=== PATIENT | female | born 1960 | race Caucasian/White ===

== ENCOUNTER 2018-01-17 08:11 | Outpatient (CLI) | payer BC ==
[2018-01-17] MEDS ORDERED: Gadobenate Dimeglumine 529 MG/1 ML (20ML VIAL) ONE (11:33)
== END 2018-01-17 08:12 | disposition home or self-care (01) ==
LOC: BICMRI 08:11
PROVIDERS: ATTEND Orthopaedic Surgery Hand Surgery
DX: D18.00 Hemangioma unspecified site (principal)
CPT/HCPCS: A9579

== ENCOUNTER 2018-01-29 13:26 | Outpatient (CLI) | payer BC ==
[2018-01-29 14:37] LABS: Hemoglobin 14.7 g/dL (12.0-16.0); Mean Corpuscular Hemoglobin 29.9 pg (27.0-31.0); Mean Corpuscular Volume 88.1 fl (81.0-99.0); Mean Platelet Volume 6.3 fL (7.4-10.4); Platelet Count 337 thou/uL (130-400); RBC Distribution Width 12.4 % (11.5-14.5); Red Blood Cell (RBC) Count 4.92 mill/uL (4.20-5.40); White Blood Cell (WBC) Count 5.7 thou/uL (4.8-10.8)
[2018-01-29 14:47] LABS: INR-International Normal Ratio 0.9; Prothrombin Time 12.4 SEC (12.0-14.7)
--- NOTE | 2018-01-29 14:49 | RAD ---
TWO VIEWS CHEST: Comparison: None. History: Pre-operative radiograph. FINDINGS: Two views of the chest show normal sized cardiomediastinal silhouette. There is no evidence of consol idation, mass, or pleural effusion. Degenerative changes are seen in the spine. IMPRESSION: No evidence of acute cardiopulmonary disease. POS: [facility]
[2018-01-29 14:59] LABS: Anion Gap 12 mmol/L (10-20); BUN (Urea Nitrogen) 15 mg/dL (9.8-20.1); Calc. Creatinine Clearance 0 mL/min (70-130); Calcium 9.9 mg/dL (7.8-10.44); Carbon Dioxide 31 mmol/L (22-29); Chloride 103 mmol/L (98-107); Estimated GFR-MDRD 76; Glucose 104 mg/dL (70-105); Sodium 142 mmol/L (136-145)
--- NOTE | 2018-01-29 20:08 | EKG ---
Test Reason : Blood Pressure : / mmHG Vent. Rate : 088 BPM Atrial Rate : 088 BPM P-R Int : 154 ms QRS Dur : 084 ms QT Int : 364 ms P-R-T Axes : 044 042 042 degrees QTc Int : 440 ms Normal sinus rhythm Normal ECG No previous ECGs available Confirmed by PHILOMENA STALLWORTH, DR. Dodd ([id number]) on 01/29/2018 8:08:10 PM Referred By: MARIO ALBERTO Confirmed By:DR. Ju QUACH MD
== END 2018-01-29 13:27 | disposition home or self-care (01) ==
LOC: LABBT 13:26
PROVIDERS: ATTEND Orthopaedic Surgery Hand Surgery
DX: Z01.818 Encounter for other preprocedural examination (principal); D18.09 Hemangioma of other sites
CPT/HCPCS: 71046; 80048; 85027; 85610; 93005; 93010

== ENCOUNTER 2018-01-30 05:55 | Day surgery (SDC) | payer BC ==
[2018-01-29 13:46] VITALS: BMI 34.9
[2018-01-30] MEDS ORDERED: Fentanyl 250 MCG/5 ML VIAL ONE (06:27)
[2018-01-30] MEDS ORDERED: Midazolam HCl 2 mg/2 ml Vial ONE ×2 (06:27→07:24)
[2018-01-30] MEDS ORDERED: Bupivacaine PF 0.5% 30 ML VIAL ONE (06:37)
[2018-01-30] MEDS ORDERED: Sodium Chloride 0.9% 10 ML ONE (06:37)
[2018-01-30] MEDS ORDERED: Bacitracin Zinc Ointment 30 gm TUBE ONE (06:37)
[2018-01-30] MEDS ORDERED: CEFAZOLIN/Water 2 GM/20 ML SYRINGE ONE (07:43)
[2018-01-30] MEDS ORDERED: Ketorolac Tromethamine 30 MG/ML VIAL ONE (09:25)
[2018-01-30] MEDS ORDERED: Propofol 200 MG/20 ML VIAL ONE (14:55)
[2018-01-30] MEDS ORDERED: Ondansetron HCl/PF 4 MG/2 ML Vial ONE (14:55)
[2018-01-30] MEDS ORDERED: PHENYLEPHRINE-NS 100 MCG/ML 10 ML SYRINGE ONE (14:55)
[2018-01-30] MEDS ORDERED: Lidocaine 1% PF 5 ML VIAL ONE (14:55)
[2018-01-30] MEDS ORDERED: Dexamethasone 20 MG/5 ML VIAL ONE (14:55)
--- NOTE | 2018-01-30 15:24 | OP ---
DATE OF SURGERY: 01/30/2018 PREOPERATIVE DIAGNOSIS: Left ring finger tumor. 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 PROCEDURE PERFORMED: 1. Removal of nail. 2. Excision biopsy glomus tumor left ring finger nail bed area junction of the germinal and sterile matrix and the nail bed graft 5 mm x 2 mm. ESTIMATED BLOOD LOSS: 10 mL TOURNIQUET TIME: 43 minutes. ANESTHESIA: General LMA technique by [place] Anesthesia. DESCRIPTION OF PROCEDURE: After successful general LMA technique, the limb was prepped and draped. The patient had a time out before then we indicated the fact that the site and procedures matched the records. We exsanguinated the limb, and augment the anesthesia with a 10 mL 0.5% metacarpophalangeal level blo ck Marcaine, no epinephrine. We then lifted the nail from the nail bed gently and remove the nail. There was a defect at the junction of the terminal junction of the sterile and germinal matrix. Slig htly oblique of the ulna, but we made a midline incision 1 cm dissecting create a flap, in the finish part of flap where the tumor was seen. It was reddish, almost oblong in shape, and approximately 4. 5 mm x 2 mm. We excised this, along with the area of normal tissue around and by doing so left a def ect in the nail bed junction of the sterile and germinal matrix more sterile matrix of approximately 4 mm x 2 mm. We irrigated the area, sent the specimen fresh to pathology, waited 20 minutes until we had their decision before we proceeded and found that it was a glomus tumor after verbal communicati on from the pathologist and surgeon Dr. Silva intraoperatively. We then proceeded to harvest a split-thickness nail bed graft, secured it with 6-0 chromic to the def ect and closure made with longitudinal midline nail incision with 6-0 chromic. We then released the tourniquet, obtained hemostasis, repaired the 1 cm area of skin flap created with a 5-0 nylon interru pted simple pattern. Placed a bacitracin covered Adaptic under the nail eponychial fold, covered the wound with bacitracin and Adaptic. Small dressing finger tube gauze with looped around the wrist to hold it in place and the patient left the operating room with pink finger. No evidence of anestheti c or operative complication.
== END 2018-01-30 10:50 | disposition home or self-care (01) ==
LOC: SDC 05:55
PROVIDERS: ATTEND Orthopaedic Surgery Hand Surgery
PROC: 0HTQXZZ Resection of Finger Nail, External Approach (ICD-10-PCS; principal; 2018-01-30)
PROC: 0JBK0ZZ Excision of Left Hand Subcutaneous Tissue and Fascia, Open Approach (ICD-10-PCS; principal; 2018-01-30)
PROC: 0HRQX7Z Replacement of Finger Nail with Autologous Tissue Substitute, External Approach (ICD-10-PCS; principal; 2018-01-30)
DX: D18.09 Hemangioma of other sites (principal); F32.9 Major depressive disorder, single episode, unspecified; F41.9 Anxiety disorder, unspecified; I10 Essential (primary) hypertension; E78.5 Hyperlipidemia, unspecified; M19.90 Unspecified osteoarthritis, unspecified site; Z79.51 Long term (current) use of inhaled steroids; Z79.2 Long term (current) use of antibiotics; Z79.899 Other long term (current) drug therapy; Z91.048 Other nonmedicinal substance allergy status; Z88.2 Allergy status to sulfonamides; Z87.891 Personal history of nicotine dependence
CPT/HCPCS: 88304; 88307; 88331; 88334; 96374; A4216; J1100; J1885; J2001; J2250; J2405; J2704; J3010; J3490; S0020

== ENCOUNTER 2018-04-11 11:43 | Outpatient (CLI) | payer BC | END 2018-04-11 11:44 | disposition home or self-care (01) | LOC: BICMAMMO 11:43 | PROVIDERS: ATTEND Obstetrics & Gynecology | DX: Z12.31 Encounter for screening mammogram for malignant neoplasm of breast (principal); Z80.3 Family history of malignant neoplasm of breast | CPT/HCPCS: 77063; 77067 ==

== ENCOUNTER 2018-06-18 08:55 | Outpatient (CLI) | payer BC ==
--- NOTE | 2018-06-18 14:17 | MRI ---
MRI LEFT SHOULDER WITH AND WITHOUT CONTRAST: Date: 06/18/18 HISTORY: Evaluate for chondroma. COMPARISON: None. FINDINGS: Bones: No fracture. No malalignment. No evidence for an extraarticular chondroma. Moderate degenerative dise ase acromioclavicular joint. Labrum: Exam was performed as a mass protocol, not as an internal derangement protocol. No labral tear is abdiel reciated. Rotator Cuff: Intact. Muscles: Muscle signal and bulk is normal. Biceps Tendon: Intact. IMPRESSION: 1. No evidence for extraarticular chondroma. 2. Moderate degenerative disease acromioclavicular joint with low grade subacromial/subdeltoid bursa effusion. 3. Intact rotator cuff. POS: [facility]
== END 2018-06-18 08:56 | disposition home or self-care (01) ==
LOC: MRI 08:55
PROVIDERS: ATTEND Orthopaedic Surgery Hand Surgery
DX: D16.02 Benign neoplasm of scapula and long bones of left upper limb (principal); M19.012 Primary osteoarthritis, left shoulder; M25.421 Effusion, right elbow

== ENCOUNTER 2018-07-09 09:39 | Outpatient (CLI) | payer BC ==
[2018-07-09 10:36] LABS: #Eosinphils 0.1 thou/uL (0.0-0.7); #Monocytes 0.6 thou/uL (0.11-0.59); #Neutrophils 3.1 thou/uL (1.40-6.50); %Basophils 0.5 % (0.0-1.0); %Eosinophils 1.8 % (0.0-10.0); %Lymphocytes 34.6 % (21.0-51.0); %Monocytes 9.7 % (0.0-10.0); %Neutrophils 53.3 % (42.0-75.0); Hemoglobin 15.4 g/dL (12.0-16.0); Mean Corpuscular HGB CONC 33.7 g/dL (32.0-36.0); Mean Corpuscular Hemoglobin 30.4 pg (27.0-31.0); Mean Platelet Volume 6.2 fL (7.4-10.4); Platelet Count 279 thou/uL (130-400); RBC Distribution Width 12.4 % (11.5-14.5); Red Blood Cell (RBC) Count 5.06 mill/uL (4.20-5.40); White Blood Cell (WBC) Count 5.8 thou/uL (4.8-10.8)
== END 2018-07-09 09:40 | disposition home or self-care (01) ==
LOC: LABBT 09:39
PROVIDERS: ATTEND Orthopaedic Surgery Hand Surgery
DX: Z01.812 Encounter for preprocedural laboratory examination (principal); L60.9 Nail disorder, unspecified
CPT/HCPCS: 85025

== ENCOUNTER 2018-07-10 08:11 | Day surgery (SDC) | payer BC ==
[2018-07-09 10:02] VITALS: BMI 35.7
[2018-07-10] MEDS ORDERED: CEFAZOLIN/Water 2 GM/20 ML SYRINGE ONE (09:10)
[2018-07-10] MEDS ORDERED: Fentanyl 100 MCG/2 ML VIAL ONE (11:53)
[2018-07-10] MEDS ORDERED: Midazolam HCl 2 mg/2 ml Vial ONE (11:53)
[2018-07-10] MEDS ORDERED: Bupivacaine PF 0.5% 30 ML VIAL ONE (11:59)
[2018-07-10] MEDS ORDERED: Betamet Acet/Betamet Na Ph 30 MG/5 ML VIAL ONE (11:59)
[2018-07-10] MEDS ORDERED: Sodium Chloride 0.9% 10 ML ONE (11:59)
[2018-07-10] MEDS ORDERED: Bacitracin Zinc Ointment 30 gm TUBE ONE (11:59)
[2018-07-10] MEDS ORDERED: Ketorolac Tromethamine 30 MG/ML VIAL ONE (14:54)
--- NOTE | 2018-07-11 11:00 | OP ---
PREOPERATIVE DIAGNOSIS: Left ring finger nail matrix defect. FINDINGS: A 15 mm x 3 mm nail matrix defect in the central radial aspect of the ring finger nail, le ft. PROCEDURES PERFORMED: 1. Left ring finger nail plate removal. 2. Left middle finger nail plate removal. 3. [place] left middle finger 15 x 3 mm split-thickness graft with microscopic techniques and applie d this to the left ring finger defect. 4. Left ring finger nail bed debridement, matrix of sterile and germinal included. ESTIMATED BLOOD LOSS: 20 mL. TOURNIQUET TIME: 80 minutes. FINDINGS: Absent matrix germinal greater than a sterile over 3 mm wide 14-15 mm long segment of the left ring finger nail. ANESTHESIA: General LMA technique augmented by 20 mL of 0.5% Marcaine block. COMPLICATIONS: None. DESCRIPTION OF PROCEDURE: After successful anesthesia listed above, the limb was prepped and draped. Timeout was done appropriately. The patient had the augmentation of the Anesthesia with 20 mL of 0 .5% Marcaine block involving both digits, because the patient had chosen to have the graft taken from the middle finger, despite my counseling on using a great toe. Then, we removed the nails. We identified the defect in the slightly radial but more central quadran t of the nail bed. We opened the eponychial fold, identified this, debrided with a combination of a 15 blade and a curette until the white scar tissue was gone and we could see underlying denuded fat. This included the matrix area, but we maintained the remnant of the previous nail during this entire debridement, so it was not violated. At this point, the patient had the eponychial fold open adjacent middle finger, we lifted off r emove the nail plate here, measured the graft the same as the other side 14-15 mm long with 3 mm wide and the microscope was brought on the field. Under microscope, we harvested a split-thickness outer 30-40% nail bed graft used both germinal and sterile matrix harvested together. I then took this an d moved into the defect created at the left ring finger and sutured it with 2 sutures proximal to mid dle and to distal using a 6-0 nonabsorbable sutures. We released the tourniquet in both sides and ob tained hemostasis in both sides. Closed the eponychial fold with interrupted 5-0 nylon simple patter n on both sides. She was placed on the graft recipient site. Bacitracin, Adaptic, and the nail and eponychial folds were closed and then placed a loose bolster with Adaptic, bacitracin and mineral oil -soaked gauze, sewed in with 4-0 nylons. We then turned attention to the donor site, there was no defect seen longitudinal or transversely in the nail matrix or germinal matrix harvest, so we closed eponychial fold with hemostasis obtained and tourniquet down using 5-0 nylon interrupted simple pattern, on both sides, placed bacitracin, Adapti c, 4 x 4s, Parag, and tape glue 2 mm wide. The patient left the operating room without evidence of a nesthetic or operative complications.
== END 2018-07-10 16:38 | disposition home or self-care (01) ==
LOC: SDC 08:11
PROVIDERS: ATTEND Orthopaedic Surgery Hand Surgery
PROC: 0HRGX74 Replacement of Left Hand Skin with Autologous Tissue Substitute, Partial Thickness, External Approach (ICD-10-PCS; principal; 2018-07-10)
PROC: 0HBQXZZ Excision of Finger Nail, External Approach (ICD-10-PCS; principal; 2018-07-10)
DX: L60.9 Nail disorder, unspecified (principal); D16.9 Benign neoplasm of bone and articular cartilage, unspecified; M75.42 Impingement syndrome of left shoulder; L90.5 Scar conditions and fibrosis of skin; M19.012 Primary osteoarthritis, left shoulder; Z79.899 Other long term (current) drug therapy
CPT/HCPCS: 96372; A4216; J0702; J1885; J2250; J3010; J3490; S0020

== ENCOUNTER 2018-10-08 18:00 | Outpatient (CLI) | payer BC | END 2018-10-08 18:01 | disposition home or self-care (01) | LOC: SLEEPLAB 18:00 | PROVIDERS: ATTEND Dentist General Practice | DX: G47.33 Obstructive sleep apnea (adult) (pediatric) (principal); R53.83 Other fatigue; R06.83 Snoring; R51 Headache; E66.9 Obesity, unspecified; Z68.36 Body mass index [BMI] 36.0-36.9, adult | CPT/HCPCS: 95806 ==

== ENCOUNTER 2019-01-29 05:02 | Outpatient (CLI) | payer BC ==
[2019-01-29 09:56] LABS: Hemoglobin 14.7 g/dL (12.0-16.0); Mean Corpuscular HGB CONC 33.2 g/dL (32.0-36.0); Mean Corpuscular Hemoglobin 29.7 pg (27.0-31.0); Mean Corpuscular Volume 89.5 fL (78.0-98.0); Mean Platelet Volume 6.4 fL (7.4-10.4); Platelet Count 342 thou/uL (130-400); RBC Distribution Width 11.7 % (11.5-14.5); Red Blood Cell (RBC) Count 4.95 mill/uL (4.20-5.40); White Blood Cell (WBC) Count 4.7 thou/uL (4.8-10.8)
[2019-01-29 10:27] LABS: Anion Gap 14 mmol/L (10-20); BUN (Urea Nitrogen) 8 mg/dL (9.8-20.1); Calc. Creatinine Clearance 0 mL/min (70-130); Calcium 9.6 mg/dL (7.8-10.44); Carbon Dioxide 25 mmol/L (22-29); Chloride 107 mmol/L (98-107); Estimated GFR-MDRD 86; Glucose 103 mg/dL (70-105); Potassium 4.3 mmol/L (3.5-5.1); Sodium 142 mmol/L (136-145)
--- NOTE | 2019-02-01 16:30 | EKG ---
Test Reason : Blood Pressure : / mmHG Vent. Rate : 078 BPM Atrial Rate : 078 BPM P-R Int : 156 ms QRS Dur : 088 ms QT Int : 360 ms P-R-T Axes : 040 054 055 degrees QTc Int : 410 ms Normal sinus rhythm Normal ECG When compared with ECG of 29-JAN-2018 13:16, No significant change was found Confirmed by DR. Abdullahi BRISCOE ([id number]) on 02/01/2019 4:30:30 PM Referred By: BELTRAN Confirmed By:DR. Abdullahi BRISCOE
== END 2019-01-29 05:03 | disposition home or self-care (01) ==
LOC: LABBT 05:02
PROVIDERS: ATTEND Orthopaedic Surgery
DX: Z01.818 Encounter for other preprocedural examination (principal); T84.84XA Pain due to internal orthopedic prosthetic devices, implants and grafts, initial encounter
CPT/HCPCS: 80048; 85027; 93005; 93010

== ENCOUNTER 2019-01-31 05:48 | Day surgery (SDC) | payer BC ==
[2019-01-29 08:58] VITALS: BMI 35.6
[2019-01-31] MEDS ORDERED: Fentanyl 100 MCG/2 ML VIAL ONE ×3 (06:56→09:27)
[2019-01-31] MEDS ORDERED: Midazolam HCl 2 mg/2 ml Vial ONE ×2 (06:56→06:57)
[2019-01-31] MEDS ORDERED: Scopolamine 1.5 mg/72 hour Patch ONE (06:57)
--- NOTE | 2019-01-31 08:14 | HP ---
HISTORY OF PRESENT ILLNESS: Ms. Rosario is a 59-year-old female who presents complaining of pain in her right elbow, history of radial head implant for elbow. The patient's implant was placed on 07/08/2014. The patient has osteolysis about the implant, is having pain, desires removal. PAST MEDICAL HISTORY: Depression, cholesterol, anxiety, TMJ. PAST SURGICAL HISTORY: Rotator cuff repair, partial thyroidectomy, hemorrhoidectomy, hernia repair, carpal tunnel, bilateral cubital tunnel cyst removal, facetectomy, right total knee arthroplasty, hemorrhoidectomy, lipoma, right elbow fracture radial head replacement. MEDICATIONS: Please see admission list for full list. SOCIAL HISTORY: Former smoker. Alcohol occasionally. Drugs, no. . One child, lives. Works at [employer]. PHYSICAL EXAMINATION: GENERAL: Alert and oriented female, in no acute distress, resting comfortably in bed. EXTREMITIES: The patient's exam of right upper elbow shows well-healed scar, small ecchymosis, bruise anteriorly, tender to palpation, 20-130 degrees of motion. . Brisk cap refill. MRI shows osteolysis around the radial head implant. ASSESSMENT: Painful hardware with contracture. PLAN: The patient will be taken for removal of radial head implant with capsular release and manipulation under anesthesia. I discussed with the patient risks and benefits of surgery, pain, scar, bleeding, infection, damage to vital structures, decreased range of motion and strength, nonunion, malunion, fracture above and below the stem, need for further procedures. The patient understood the risks and benefits and planned to perform early this morning. Job ID: [id number]
[2019-01-31] MEDS ORDERED: Bupivacaine HCl 0.5%/Epinephrine 1:200,000/PF 30 ml Vial ONE (08:21)
--- NOTE | 2019-01-31 09:18 | RAD ---
RIGHT ELBOW TWO VIEWS: HISTORY: Intraoperative imaging for replacement. FINDINGS: Two portable fluoroscopic spot views are presented for interpretation. These reveal resection of the radial head. IMPRESSION: Resection of the radial head, as seen on two portable fluoroscopic spot views. POS: [facility]
--- NOTE | 2019-01-31 12:42 | OP ---
DATE OF PROCEDURE: 01/31/2019 PREOPERATIVE DIAGNOSIS: Painful right elbow radial head implant with contracture. POSTOPERATIVE DIAGNOSIS: Painful right elbow radial head implant with contracture. PROCEDURES PERFORMED: 1. Right elbow radial head removal, deep. 2. Contracture release with manipulation under anesthesia. INVESTMENT BROKER: None. ANESTHESIA: Tristan Bonner CRNA. The patient received 20 mL of Marcaine 0.25% with epinephrine. ESTIMATED BLOOD LOSS: 50 mL. TOURNIQUET TIME: 36 minutes at 250 mmHg. ANTIBIOTICS: Ancef 2 g. EXPLANTS: Radial head implant. COMPLICATIONS: None. HISTORY OF PRESENT ILLNESS: Ms. Rosario is a 59-year-old female, who 4 years ago had a radial head fracture with elbow injury, underwent a radial head implant. The patient had about 30 to 130 degree range of motion. I discussed with the patient the risks and benefits that since the osteophytes around the radial head implant removed and the radial head be getting active range of motion and performing MVA and contracture release. I discussed the risks and benefits of surgery to include pain, scar, bleeding, infection, damage to vital structures, decreased range of motion and strength, fracture, instability, and loss of life or limb. The patient understood the risks and benefits and elected to proceed. DESCRIPTION OF PROCEDURE: A time-out was performed designating the patient's right upper extremity as the operative site based on site, consents, and marking. After time-out, the patient's right upper extremity was prepped and draped in sterile fashion. Tourniquet was brought up for a total of 36 minutes. I made an incision down through the skin, down through the elbow and came to what appeared to be the Maik interval. Pronate the hand and take down little bit of the patient's pronator to expose the neck as well as came down superiorly and released the capsule proximally any soft tissue bands with a blunt Hooks. A little bit of adhesions noted to the anterior aspect of the humerus. We exposed, removed the implant, washed the joint, I actually extended her to about 10 degrees. I do not feel that she will likely be able to come to that. She did have some improvement in extension. I washed out the joint. We closed the interval with 0 Vicryl, 2-0 and 3-0 nylon, injected 20 mL of Marcaine. The patient will begin active range of motion immediately. She will follow up me in clinic in about 10 days. She was given tramadol for pain relief. Job ID: [id number] MTDD
== END 2019-01-31 10:45 | disposition home or self-care (01) ==
LOC: SDC 05:48
PROVIDERS: ATTEND Orthopaedic Surgery
PROC: 0PPD04Z Removal of Internal Fixation Device from Left Humeral Head, Open Approach (ICD-10-PCS; principal; 2019-01-31)
DX: T84.84XA Pain due to internal orthopedic prosthetic devices, implants and grafts, initial encounter (principal); M24.522 Contracture, left elbow; F32.9 Major depressive disorder, single episode, unspecified; F41.9 Anxiety disorder, unspecified; M26.609 Unspecified temporomandibular joint disorder, unspecified side; Z87.891 Personal history of nicotine dependence; Z96.651 Presence of right artificial knee joint; Z90.89 Acquired absence of other organs; Z91.09 Other allergy status, other than to drugs and biological substances; Z88.2 Allergy status to sulfonamides; Z88.5 Allergy status to narcotic agent; Z79.51 Long term (current) use of inhaled steroids; Z79.899 Other long term (current) drug therapy; Z98.890 Other specified postprocedural states
CPT/HCPCS: 76000; J0670; J2250; J3010

== ENCOUNTER 2019-12-23 08:02 | Outpatient (CLI) | payer BC ==
--- NOTE | 2019-12-23 08:27 | BD ---
EXAM: DEXA bone density examination HISTORY: 59-year-old postmenopausal female for screening COMPARISON: None FINDINGS: L1--bone mineral density 0.864 g/sq cm; T score -1.1 L2--bone mineral density 0.781 g/sq cm; T score -2.2 L3--bone mineral density 0.883 g/sq cm; T score -1.8 L4--bone mineral density 0.909 g/sq cm; T score 1.4 Total L1-L4--bone mineral density 0.866 g/sq cm; T score -1.6 Left femoral neck--bone mineral density0.853; T score 0.0 Total proximal left femur--bone mineral density 1.001; T score 0.5 IMPRESSION: Osteopenia. This patient has a 10 year WHO fracture risk of a major osteoporotic fracture of 5.3% and of a hip fracture of 0.1%.
== END 2019-12-23 08:03 | disposition home or self-care (01) ==
LOC: BICMAMMO 08:02
PROVIDERS: ATTEND Family Medicine
DX: Z13.820 Encounter for screening for osteoporosis (principal); M85.88 Other specified disorders of bone density and structure, other site; Z78.0 Asymptomatic menopausal state
CPT/HCPCS: 77080

== ENCOUNTER 2020-04-15 06:20 | Outpatient (CLI) | payer BC, OTHER ==
[2020-04-15 12:05] LABS: #Basophils 0.1 thou/uL (0.0-0.2); #Eosinphils 0.1 thou/uL (0.0-0.7); #Lymphocytes 2.3 thou/uL (1.20-3.40); #Monocytes 0.5 thou/uL (0.11-0.59); #Neutrophils 2.6 thou/uL (1.40-6.50); %Basophils 1.2 % (0.0-1.0); %Eosinophils 1.8 % (0.0-10.0); %Lymphocytes 42.1 % (21.0-51.0); %Monocytes 8.4 % (0.0-10.0); %Neutrophils 46.5 % (42.0-75.0); Hemoglobin 14.3 g/dL (12.0-16.0); Mean Corpuscular HGB CONC 33.2 g/dL (32.0-36.0); Mean Corpuscular Hemoglobin 29.4 pg (27.0-31.0); Mean Corpuscular Volume 88.5 fL (78.0-98.0); Platelet Count 301 thou/uL (130-400); RBC Distribution Width 12.1 % (11.5-14.5); Red Blood Cell (RBC) Count 4.88 mill/uL (4.20-5.40); White Blood Cell (WBC) Count 5.5 thou/uL (4.8-10.8)
[2020-04-15 12:25] LABS: Anion Gap 13 mmol/L (10-20); BUN (Urea Nitrogen) 9 mg/dL (9.8-20.1); Calc. Creatinine Clearance 0 mL/min (70-130); Calcium 9.4 mg/dL (7.8-10.44); Carbon Dioxide 27 mmol/L (22-29); Chloride 104 mmol/L (98-107); Estimated GFR-MDRD 85; Glucose 98 mg/dL (70-105); Potassium 3.6 mmol/L (3.5-5.1); Sodium 140 mmol/L (136-145)
[2020-04-16 11:00] LABS: SARS-CoV-2 MS2 Positive; SARS-CoV-2 N Gene Negative; SARS-CoV-2 S Gene Negative; SARS-CoV-2 orf1ab Negative
== END 2020-04-15 06:21 | disposition home or self-care (01) ==
LOC: LABBT 06:20
PROVIDERS: ATTEND Orthopaedic Surgery Hand Surgery
DX: Z01.818 Encounter for other preprocedural examination (principal); Z11.59 Encounter for screening for other viral diseases; M65.342 Trigger finger, left ring finger
CPT/HCPCS: 80048; 85025; 87635; 93005; 93010; U0003

== ENCOUNTER 2020-04-17 08:20 | Day surgery (SDC) | payer BC ==
[2020-04-15 10:37] VITALS: BMI 35.7
[2020-04-17] MEDS ORDERED: Scopolamine 1.5 mg/72 hour Patch ONE (09:21)
[2020-04-17] MEDS ORDERED: Midazolam HCl 2 mg/2 ml Vial ONE ×2 (09:21→11:30)
[2020-04-17] MEDS ORDERED: Fentanyl 100 MCG/2 ML VIAL ONE ×2 (11:17→11:30)
[2020-04-17] MEDS ORDERED: Meperidine HCl/PF 25 MG/ML VIAL ONE (11:17)
[2020-04-17] MEDS ORDERED: Famotidine/PF 20 mg/2ml Vial ONE (11:17)
[2020-04-17] MEDS ORDERED: PROPOFOL 200 MG/20 ML VIAL ONE (13:46)
[2020-04-17] MEDS ORDERED: Dexamethasone 20 MG/5 ML VIAL ONE (13:46)
[2020-04-17] MEDS ORDERED: Metoclopramide HCl 10 MG/2 ML VIAL ONE (13:46)
[2020-04-17] MEDS ORDERED: Ketorolac Tromethamine 30 MG/ML VIAL ONE (13:46)
[2020-04-17] MEDS ORDERED: Ondansetron PF 4 MG/2 ML Vial ONE (13:46)
[2020-04-17] MEDS ORDERED: Lidocaine 1% PF 5 ML VIAL ONE (13:46)
--- NOTE | 2020-04-20 11:36 | OP ---
DATE OF PROCEDURE: 04/17/2020 PREOPERATIVE DIAGNOSES: Left ring finger trigger digit. Left ring finger flexor tenosynovitis. POSTOPERATIVE DIAGNOSES: Left ring finger trigger digit. Left ring finger flexor tenosynovitis. PROCEDURE PERFORMED: 1. Left ring finger A1 thanh release. 2. Left ring finger radical flexor tenosynovectomy. SPECIMENS: Yes, tenosynovium sent to the lab as a sample to rule out inflammatory possibility. FINDINGS: Tight A1 thanh with [id number] tenosynovitis underneath the A1 thanh and just proximal to it. INDICATIONS FOR PROCEDURE: The patient had unresolved triggering stage 3 to 4 at the left ring finger after having previous trigger finger releases. DESCRIPTION OF PROCEDURE: After successful general endotracheal anesthesia, limb was prepped and draped. The time-out was done and the side, site, and finger matched the left ring finger A1 thanh. We performed a 1 cm v-shaped incision off the midline slightly ulna to the ring finger, carried through skin and subcutaneous tissue, identified both neurovascular bundles. We then saw the very thickened tenosynovium just proximal to A1 thanh. We released the A1 thanh in the midline with a Mayes blade, not violating the A2 thanh. We lifted the flexor tendon up. There was no mass underneath, but the tenosynovium was very thick, so we performed a radical flexor tenosynovectomy of the flexor digitorum profundus superficialis at this level using a tenotomy scissor. We irrigated the area, placed Celestone in the wound, released the tourniquet, obtained hemostasis. We then closed the wound with interrupted 4-0 nylon in a mattress pattern. A bulky dressing was applied with bacitracin, Adaptic, 4x4, Kerlix, held with a small [place] wrap and the patient left the operating room without evidence of anesthetic or operative complication. Job ID: [id number]
== END 2020-04-17 15:22 | disposition home or self-care (01) ==
LOC: SDC 08:20
PROVIDERS: ATTEND Orthopaedic Surgery Hand Surgery
DX: M65.342 Trigger finger, left ring finger (principal); M65.9 Synovitis and tenosynovitis, unspecified; Z79.899 Other long term (current) drug therapy; Z88.2 Allergy status to sulfonamides; Z88.5 Allergy status to narcotic agent; Z88.6 Allergy status to analgesic agent; Z91.048 Other nonmedicinal substance allergy status
CPT/HCPCS: 88305; J0690; J1100; J1885; J2001; J2175; J2250; J2405; J2704; J2765; J3010; S0028

== ENCOUNTER 2022-03-30 15:23 | Outpatient (CLI) | payer BC ==
[2022-03-30 17:44] LABS: Bilirubin Neg (Negative); Blood, Urine Negative (Negative); Clarity Slightly Cloudy (Clear); Glucose, Urine (Dipstick) Normal (Negative); Ketone, Urine Negative (Negative); Leukocyte 500 (Negative); Nitrite Negative (Negative); Protein, Urine (Dipstick) Negative (Neg-Trace); Specific Gravity, Urine 1.015 (1.002-1.036); Urobilinogen Normal mg/dL (Less than 2)
== END 2022-03-30 15:24 | disposition home or self-care (01) ==
LOC: LABBT 15:23
PROVIDERS: ATTEND Orthopaedic Surgery
DX: Z01.818 Encounter for other preprocedural examination (principal); M17.12 Unilateral primary osteoarthritis, left knee
CPT/HCPCS: 71046; 81003; 93005; 93010

== ENCOUNTER 2022-03-30 16:00 | Inpatient (IN) | payer BC ==
[2022-03-30 17:45] LABS: INR-International Normal Ratio 0.9
[2022-03-31 01:01] LABS: SARS-CoV-2 PCR by NAA Not Detected (NotDetected)
[2022-04-04] MEDS ORDERED: Midazolam HCl 2 mg/2 ml Vial ONE (06:46)
[2022-04-04] MEDS ORDERED: Fentanyl 100 MCG/2 ML VIAL ONE (06:46)
[2022-04-04] MEDS ORDERED: Sodium Chloride 0.9% 100 ML ONE ×2 (06:47→06:48)
[2022-04-04] MEDS ORDERED: Vancomycin (BATCH) 1.5 GRAM/300 ML BAG ONE (06:47)
[2022-04-04] MEDS ORDERED: Tranexamic Acid 1,000 MG/10 ML VIAL ONE (06:47)
[2022-04-04] MEDS ORDERED: CEFAZOLIN 2 GM VIAL ONE (06:48)
[2022-04-04 06:49] LABS: #Basophils 0.1 thou/uL (0.0-0.2); #Eosinphils 0.1 thou/uL (0.0-0.7); #Lymphocytes 1.9 thou/uL (1.20-3.40); #Monocytes 0.6 thou/uL (0.11-0.59); #Neutrophils 1.7 thou/uL (1.40-6.50); %Basophils 1.3 % (0.0-1.0); %Eosinophils 1.6 % (0.0-10.0); %Lymphocytes 43.2 % (21.0-51.0); %Monocytes 14.8 % (0.0-10.0); %Neutrophils 39.2 % (42.0-75.0); Hemoglobin 14.2 g/dL (12.0-16.0); Mean Corpuscular HGB CONC 32.9 g/dL (32.0-36.0); Mean Corpuscular Hemoglobin 30.7 pg (27.0-31.0); Mean Corpuscular Volume 93.5 fL (78.0-98.0); Mean Platelet Volume 7.3 fL (7.4-10.4); Platelet Count 232 thou/uL (130-400); RBC Distribution Width 12.5 % (11.5-14.5); Red Blood Cell (RBC) Count 4.61 mill/uL (4.20-5.40); White Blood Cell (WBC) Count 4.3 thou/uL (4.8-10.8)
[2022-04-04] MEDS ORDERED: Bupivacaine 0.25% HCL 30 ML VIAL ONE (07:00)
[2022-04-04] MEDS ORDERED: PROPOFOL 200 MG/20 ML VIAL ONE (07:24)
[2022-04-04] MEDS ORDERED: Lidocaine 1% PF 5 ML VIAL ONE (07:24)
[2022-04-04] MEDS ORDERED: Ropivacaine 0.5% HCl/PF (150 MG/30 ML VIAL) ONE (07:24)
[2022-04-04] MEDS ORDERED: Ketorolac Tromethamine 30 MG/ML VIAL ONE (07:24)
[2022-04-04] MEDS ORDERED: Ondansetron PF 4 MG/2 ML Vial ONE (07:24)
[2022-04-04] MEDS ORDERED: fentaNYL Citrate/PF 100 MCG/2 ML SYRINGE ONE (07:34)
[2022-04-04] MEDS ORDERED: diphenhydrAMINE 25 MG CAP PO PRN (07:39)
[2022-04-04] MEDS ORDERED: traMADol HCl 50 MG TAB PO PRN ×2 (07:39→07:45)
[2022-04-04] MEDS ORDERED: Fentanyl 100 MCG/2 ML VIAL SLOW IVP PRN ×2 (07:39→07:45)
[2022-04-04] MEDS ORDERED: Ondansetron PF 4 MG/2 ML Vial IVP PRN ×2 (07:39→07:45)
[2022-04-04] MEDS ORDERED: Zolpidem Tartrate 5 MG TAB PO PRN ×2 (07:39→07:45)
[2022-04-04] MEDS ORDERED: Acetaminophen 325 MG TAB PO PRN (07:39)
[2022-04-04] MEDS ORDERED: Promethazine HCl 25 MG/ML VIAL IM PRN ×3 (07:39→09:16)
[2022-04-04] MEDS ORDERED: Acetaminophen/Codeine 30-300mg Tablet PO PRN ×2 (07:44→07:48)
[2022-04-04] MEDS ORDERED: Ropivacaine 0.2% 550 ML 550 ML NERVE BLCK SCH (07:45)
[2022-04-04] MEDS ORDERED: Tranexamic Acid 1,000 MG in Sodium Chloride 0.9% 100 ML IVPB SCH (07:45)
[2022-04-04] MEDS ORDERED: Liraglutide [Saxenda] 3 MG/0.5 ML Pen.Injctr SC SCH (09:00)
[2022-04-04] MEDS ORDERED: Non-Formulary Item 1 EACH (Multivitamin [Daily Multiple Vitamin] 1 EACH Tablet) PO SCH (09:00)
[2022-04-04] MEDS ORDERED: Ondansetron HCl/PF 4 MG/2 ML Vial IVP PRN (09:16)
[2022-04-04] MEDS ORDERED: Promethazine HCl 25 MG/ML VIAL IVPB PRN (09:16)
[2022-04-04] MEDS ORDERED: Fentanyl 250 MCG/5 ML VIAL ONE (09:30)
[2022-04-04] MEDS ORDERED: Non-Formulary Medication 1 EACH PO PRN (09:42)
[2022-04-04] MEDS ORDERED: PACU-Morphine 4MG/ML VIAL SLOW IVP PRN (09:45)
[2022-04-04] MEDS ORDERED: Morphine Sulfate 2 MG/ML SYRINGE SLOW IVP PRN (09:45)
[2022-04-04 11:24] LABS: Calcium 8.8 mg/dL (7.8-10.44); Chloride 105 mmol/L (98-107); Potassium 3.9 mmol/L (3.5-5.1); Sodium 139 mmol/L (136-145)
[2022-04-04 11:25] LABS: Glucose 147 mg/dL (70-105)
[2022-04-04 11:26] LABS: Anion Gap 10 mmol/L (10-20); Carbon Dioxide 28 mmol/L (22-29)
[2022-04-04 11:28] LABS: Calc. Creatinine Clearance 133 mL/min (70-130)
[2022-04-04 11:29] LABS: BUN (Urea Nitrogen) 10 mg/dL (9.8-20.1)
[2022-04-04] MEDS: Sodium Chloride 0.9% 1,000 ML IV SCH ×2 (12:14→19:23)
[2022-04-04] MEDS: traMADol HCl 50 MG TAB PO PRN (12:16)
[2022-04-04] MEDS: Loratadine 10 MG TAB PO SCH (12:18)
[2022-04-04] MEDS: Fluticasone Propionate Nasal Spray 16 gm Bottle NASAL SCH (12:18)
[2022-04-04] MEDS: Hydrochlorothiazide 25 MG TAB PO SCH (12:19)
[2022-04-04] MEDS: Aspirin 81 mg Enteric Coated Tablet PO SCH ×2 (12:19→22:29)
[2022-04-04] MEDS ORDERED: Floranex 1 GM Packet PO SCH (13:45)
[2022-04-04] MEDS ORDERED: Ketorolac Tromethamine 30 MG/ML VIAL IVP SCH (14:00)
[2022-04-04] MEDS: Ketorolac Tromethamine 30 MG/ML VIAL IVP SCH ×3 (14:33→23:14)
[2022-04-04] MEDS: CEFAZOLIN 2 GM in Sodium Chloride 0.9% 100 ML IVPB SCH ×2 (14:42→22:30)
[2022-04-04 16:22] VITALS: BMI 375.1
[2022-04-04] MEDS ORDERED: Vancomycin HCl 1.5 GM in Sodium Chloride 0.9% 250 ML 300 ML IVPB SCH (18:00)
[2022-04-04] MEDS ORDERED: Rosuvastatin 10 MG TAB PO SCH (21:00)
[2022-04-05] MEDS: Sodium Chloride 0.9% 1,000 ML IV SCH ×2 (01:56→15:17)
[2022-04-05 05:35] LABS: Hemoglobin 11.4 g/dL (12.0-16.0); Mean Corpuscular HGB CONC 32.9 g/dL (32.0-36.0); Mean Corpuscular Hemoglobin 30.8 pg (27.0-31.0); Mean Corpuscular Volume 93.6 fL (78.0-98.0); Mean Platelet Volume 5.9 fL (7.4-10.4); Platelet Count 219 thou/uL (130-400); Red Blood Cell (RBC) Count 3.71 mill/uL (4.20-5.40)
[2022-04-05] MEDS: Ketorolac Tromethamine 30 MG/ML VIAL IVP SCH ×2 (06:28→12:28)
[2022-04-05] MEDS ORDERED: Ferrous Gluconate 324 MG TAB PO SCH (08:00)
[2022-04-05] MEDS ORDERED: Senokot S 8.6-50 MG TAB PO SCH (09:00)
[2022-04-05] MEDS ORDERED: Floranex 1 GM Packet PO SCH (09:00)
[2022-04-05] MEDS ORDERED: Multivitamin W/ Minerals 1 TAB PO SCH (09:00)
[2022-04-05] MEDS: Aspirin 81 mg Enteric Coated Tablet PO SCH (09:17)
[2022-04-05] MEDS: traMADol HCl 50 MG TAB PO PRN (09:18)
[2022-04-05] MEDS: Hydrochlorothiazide 25 MG TAB PO SCH (09:18)
[2022-04-05] MEDS: Loratadine 10 MG TAB PO SCH (09:18)
[2022-04-05] MEDS: Fluticasone Propionate Nasal Spray 16 gm Bottle NASAL SCH (09:20)
[2022-04-05 11:23] VITALS: BP 107/70; TEMP 97.9
== END 2022-04-05 14:15 | disposition home or self-care (01) | DRG 470 ==
LOC: SURG A 04-04 05:27 → SURG B 04-04 10:45
PROVIDERS: ADMIT Orthopaedic Surgery; ATTEND Orthopaedic Surgery
PROC: 0SRD0JZ Replacement of Left Knee Joint with Synthetic Substitute, Open Approach (ICD-10-PCS; principal; 2022-04-04)
PROC: 3E0T3BZ Introduction of Anesthetic Agent into Peripheral Nerves and Plexi, Percutaneous Approach (ICD-10-PCS; 2022-04-04)
DX: M17.12 Unilateral primary osteoarthritis, left knee (principal); Z88.6 Allergy status to analgesic agent; Z88.2 Allergy status to sulfonamides; Z91.09 Other allergy status, other than to drugs and biological substances; Z79.899 Other long term (current) drug therapy
CPT/HCPCS: 36415; 80048; 85025; 85027; 85610; 86850; 86900; 86901; 87081; A4306; C1713; C1776; J1885; J2250; J2405; J2704; J2795; J3010; J3370; J3490; J7050; S0020; U0003; U0005

== ENCOUNTER 2022-06-21 07:59 | Outpatient (CLI) | payer BC | END 2022-06-21 08:00 | disposition home or self-care (01) | LOC: BICMAMMO 07:59 | PROVIDERS: ATTEND Obstetrics & Gynecology | DX: Z13.820 Encounter for screening for osteoporosis (principal); M85.88 Other specified disorders of bone density and structure, other site | CPT/HCPCS: 77080 ==